=== PATIENT | male | born 1965 | race Two or more races ===

== ENCOUNTER → 2019-03-02 | Outpatient (CLI) | payer BC ==
--- NOTE | 2019-03-02 11:03 | Diagnostic Imaging Report ---
EXAM: CHEST 2 VIEWS, PA and lateral DATE: 03/02/2019 Time stamp on exam: 10:38 AM INDICATION: Annual physical exam COMPARISON: None FINDINGS: LINES/TUBES: None LUNGS: No consolidations or edema. PLEURA: No effusions or pneumothorax. HEART AND MEDIASTINUM: Normal size and contour. BONES AND SOFT TISSUES: No acute findings. Mild degenerative changes of the spine. IMPRESSION: No acute thoracic abnormality. Signed by: Dr. Reynold Joel DO on 03/02/2019 10:59 AM
== END ==
LOC: RAD 10:23
PROVIDERS: ATTEND Internal Medicine
DX: Z00.00 Encounter for general adult medical examination without abnormal findings (principal)
CPT/HCPCS: 71046